=== PATIENT | male | born 1980 | race Caucasian/White ===

== ENCOUNTER 2024-07-06 07:24 | Day surgery (SDC) | payer OTHER ==
[2024-06-27 14:00] LABS: Absolute Eosinophils 0.3 K/uL (0-0.5); Absolute Lymphocytes (CBC) 1.9 K/uL (0.7-4.9); Absolute Monocytes 0.9 K/uL (0.1-1.3); Absolute Neutrophil 4.4 K/uL (1.8-8.0); Basophils % 0.6 % (0-1.3); Hematocrit 48.7 % (39.6-49.0); Hemoglobin 16.3 g/dL (13.6-17.9); Lymphocytes % 24.9 % (15.3-44.8); MCH 30.7 pg (27.0-35.0); MCHC 33.4 g/dL (32.0-36.0); MCV 91.8 fL (80-100); MPV 11.7 fL (7.6-11.3); Monocytes % 12.3 % (3.3-12.3); Neutrophils % 58.2 % (41.7-73.7); Platelets 175 thou/uL (152-406)
[2024-06-27 14:02] LABS: Anion Gap 7.5 mEq/L (5.0-15.0); Potassium 4.5 mEq/L (3.5-5.1)
--- NOTE | 2024-06-27 19:36 | RAD REPORT ---
EXAMINATION: TWO VIEW CHEST XR CLINICAL INDICATION: Male, 44 years old. [facility] pre op pending hemorroidectomy. Hypertension TECHNIQUE: 2 view radiographs of the chest were performed. COMPARISON: No prior exam. FINDINGS: The lungs are well inflated and clear. No pneumothorax or sizable effusion. The heart is normal in si ze. Mediastinal contours are unremarkable. IMPRESSION: No acute or significant abnormalities.
--- NOTE | 2024-06-28 12:11 | EKG ---
Test Date: 2024-06-27 Test Time: 13:33:25 Home Stager: SHREYA MEASUREMENT RESULTS: Intervals: Rate: 77 MO: 150 QRSD: 88 QT: 394 QTc: 445 [place]: P: 38 MO: 150 QRS: 43 T: 36 INTERPRETIVE STATEMENTS: Normal sinus rhythm Normal ECG No previous ECG available for comparison Electronically Signed On 06-28-24 12:07:58 CDT by Randall Dasilva
[2024-07-06] MEDS ORDERED: Ringers Lactate 1,000 ML IV ONE (07:39)
[2024-07-06] MEDS ORDERED: CEFOXITIN SODIUM 1 GM/VIAL ONE (07:39)
[2024-07-06] MEDS ORDERED: LIDOCAINE 2% MPF 5 ML VIAL ONE (08:03)
[2024-07-06] MEDS ORDERED: ONDANSETRON 4 MG/2 ML VIAL ONE (08:03)
[2024-07-06] MEDS ORDERED: FENTANYL CITR 100 MCG/2 ML ONE (08:03)
[2024-07-06] MEDS ORDERED: MIDAZOLAM HCL 2 MG/2 ML INJ ONE (08:03)
[2024-07-06] MEDS ORDERED: propofoL 200 MG/20 ML VIAL IV ONE (08:03)
[2024-07-06] MEDS ORDERED: ROCURONIUM 50 MG/5 ML VIAL IV ONE (09:11)
[2024-07-06] MEDS ORDERED: dexAMETHasone 10 MG/ML VIAL ONE (09:46)
[2024-07-06] MEDS ORDERED: KETOROLAC 30 MG/ML INJ ONE (09:46)
--- NOTE | 2024-07-06 10:06 | P.OP ---
Date of Service: 07/06/24 Preop diagnosis: Rectal pain Postop diagnosis: Hemorrhoids x 2 Procedure performed: Examin under anesthesia, rigid proctoscopy and complex hemorrhoidectomy x 2 Surgeon: Guicho Freedman MD Frame Polisher: None Estimated blood loss: Minimal Specimen: Right posterior hemorrhoid and a left posterior hemorrhoid Findings: As above Anesthesia: General Complications: None Drains: None Fluids and blood products: Nonapplicable Disposition: Recovery room Operative note: Patient brought to the OR and placed in supine position. General anesthesia began. Patient prepped and draped in the lithotomy position. Exam under anesthesia revealed 2 internal hemorrhoids with external component. No other evidence of disease was identified. Harmonic scalpel used to excise both hemorrhoids. Both hemorrhoids labeled appropriately and sent to pathology. There were numerous clots inside the hemorrhoids. Wound examined and bleeding controlled cautery. Rectal pack consisting of Gelfoam Surgicel and Vaseline gauze placed to the anal canal. Marcaine 0.5% infiltrated locally for postop pain control. Sterile dressing applied. Patient awakened and taken to recovery room in good general condition. CC: Dr. Herndon's office
[2024-07-06] MEDS: HYDROMORPHONE HCL 1 MG/ML INJ ONE (10:12)
[2024-07-06] MEDS ORDERED: SUGAMMADEX SODIUM 200 MG/2 ML VIAL IV ONE (10:29)
[2024-07-06] MEDS ORDERED: SUCCINYLCHOLINE 20 MG/ML (10 ML) IV ONE (10:29)
[2024-07-06] MEDS: FENTANYL CITR 100 MCG/2 ML ONE (10:43)
[2024-07-06] MEDS ORDERED: HYDROCODONE/APAP 7.5/325 MG TAB ONE (11:12)
[2024-07-06] MEDS: HYDROCODONE/APAP 7.5/325 MG TAB PO PRN (11:31)
[2024-07-06 12:17] VITALS: BP 129/73; TEMP 97.3; O2SAT 96
== END 2024-07-06 11:50 | disposition home or self-care (01) ==
LOC: OR 07:24
PROVIDERS: ATTEND Surgery
PROC: 0DJD8ZZ Inspection of Lower Intestinal Tract, Via Natural or Artificial Opening Endoscopic (ICD-10-PCS; 2024-07-06)
PROC: 06BY0ZC Excision of Hemorrhoidal Plexus, Open Approach (ICD-10-PCS; principal; 2024-07-06 09:00)
DX: K64.8 Other hemorrhoids (principal)
CPT/HCPCS: 93005; 85025; 80048; 36415; 88304; 71046; 46260; 45300; J2704; J2001; J2250; J3010 ×2; J1100; J1170; J0694; J2405; J7120